=== PATIENT | male | born 1950 | race Hispanic/Latino ===

== ENCOUNTER 2016-08-04 08:44 | Day surgery (SDC) | payer BC, MEDICARE ==
[2016-08-04] MEDS ORDERED: DIPRIVAN 10 MG/ML IV ONE ×2 (08:50)
[2016-08-04] MEDS ORDERED: XYLOCAINE MPF 2% ONE (08:50)
[2016-08-04] MEDS ORDERED: ROBINUL ONE (09:00)
[2016-08-04] MEDS ORDERED: NACL 0.9% 1000 ML 1,000 ML IV SCH (10:00)
--- NOTE | 2016-08-04 10:03 | Anesthesia Consultation ---
Anesthesia Consult and Med Hx Date of service: 08/04/16 - Airway ROM Head & Neck: Inadequate Mental/Hyoid Distance: Adequate - Pulmonary Exam CTA: Yes - Cardiac Exam Cardiac Exam: RRR - Pre-Operative Health Status ASA Pre-Surgery Classification: ASA3 Proposed Anesthetic Plan: MAC - Cardiovascular System Hx Hypertension: Yes Hx Heart Attack/AMI: Yes (2001) Hx Angina: Yes - Central Nervous System CVA: Yes (Mar, 2015. No physical residuals, but some difficulty with communication.) Hx Back Pain: Yes - Additional Comments Anesthesia Medical History Comments: HTN. Stent 2001. IN 2001. STROKE 2015. GERD
--- NOTE | 2016-08-04 10:05 | Anesthesia Day of Surgery ---
Anesthesia Day of Surgery - Day of Surgery Patient Examined: Yes Patient H&P Reviewed: Yes Patient is NPO: Yes Beta Blockers: Yes
--- NOTE | 2016-08-04 10:47 | Short Stay Summary ---
Short Stay Documentation Date of service: 08/04/16 Narrative H&P: The patient presents for EGD and dilation for dysphagia and odynophagia - History Past Medical History: CAD, heart failure, hypertension, stroke Past Surgical History: appendectomy, cholecystectomy, Other (spinal surgery) Social history: no significant social history, no smoking, no alcohol abuse, no prescription drug abuse - Allergies and Medications Current Medications: Allergies valdecoxib [From Bextra] Allergy (Verified 11/24/15 11:35) Hives Sulfa (Sulfonamide Antibiotics) Adverse Reaction (Verified 10/17/14 12:02) Hives Home Medications Medication Instructions Recorded Confirmed Last Taken Type RX: Gabapentin [Neurontin] 800 mg PO Q8H 10/17/14 11/24/15 08/03/16 07:00 History RX: Morphine [Morphine TAB] 30 mg PO Q12H 10/17/14 11/24/15 08/04/16 07:00 History RX: Oxycodone HCl [Roxicodone TAB] 15 mg PO Q6H 10/17/14 11/24/15 08/04/16 07: 00 History RX: Zolpidem [Ambien] 5 mg PO QHS PRN 10/17/14 11/24/15 11/23/15 History RX: Aspirin [Aspirin BABY CHEW TAB] 81 mg PO QDAY #30 tab.chew 10/18/1411/24/15 Rx RX: Metoprolol [Lopressor TAB] 25 mg PO BID #60 tablet 10/18/14 11/24/15 20:00 Rx Atorvastatin Calcium [Lipitor] 20 mg PO QHS 11/24/15 11/24/15 11/23/15 History Active Medications Sodium Chloride (Nacl 0.9% 1000 Ml) 1,000 mls @ 50 mls/hr IV DIRECT BLANCO Last Admin: 08/04/16 10:04 Dose: 50 mls/hr - Physical exam General appearance: no acute distress, well-nourished Integumentary: no rash, no growths, no abnormal pigmentation HEENT: Atraumatic, PERRLA, EOMI, Mucous membr. moist/pink Lungs: Clear to auscultation, Normal air movement Breasts: deferred Heart: Regular rate, Normal S1, Normal S2, No murmurs Gastrointestinal: normoactive bowel sounds, tenderness, no distended, no masses , no guarding, no hepatomegaly, no splenomegaly Male Genitourinary: deferred Rectal Exam: deferred Extremities: no ischemia, pulses intact, pulses symmetrical, No edema, normal temperature, normal color, Full ROM Neurological: Normal gait, Normal speech, Strength at 5/5 X4 ext, Normal tone, Sensation intact, Cranial nerves 3-12 NL - Brief post op/procedure progress note Date of procedure: 08/04/16 Procedure: see dicatation Pathology: list (antral biopsies for h.pylori) Specimen disposition: to lab Condition: stable - Disposition Condition at discharge: Good Disposition: DC-01 TO HOME OR SELFCARE - Discharge Diagnoses (1) Dysphagia Status: Acute Qualifiers: Dysphagia type: D (2) Odynophagia Status: Acute Short Stay Discharge Plan Activity: other (no driving for 24 hours)
--- NOTE | 2016-08-04 10:52 | Operative Report ---
Operative Report Operative Report: Date of procedure: 08/04/2016 Procedure: Esophagogastroduodenoscopy with biopsies of the antrum for H. pylori. Esophageal dilation with 42, 46 and 50 Slovenian Foote dilator towards Preprocedure diagnosis: Odynophagia and dysphagia. Abdominal pain. History of peptic ulcer disease. Post procedure diagnosis: Gastritis. 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 Lipomatous appearing epiglottis Endoscopist: Dr. Nobles Anesthesia: Monitored anesthesia care per anesthesia department Medications: Propofol per anesthesia Estimated blood loss: 0 After careful discussion of the nature and purpose of the procedure as well as details the technique risks benefits and alternatives consent was obtained. The patient was placed in the left lateral decubitus position and medicated per anesthesia. The tip of the Vtrim EQ 570 video scope was passed per orum under direct vision into the esophagus and advanced into the stomach and descending duodenum. The epiglottis appeared lipomatous on initial inspection. There was no obvious narrowing in the cricopharyngeal area. The descending duodenum the duodenal bulb and pylorus were symmetrical and normal. The scope was withdrawn into the stomach and the stomach then gently insufflated with air. The antrum revealed diffuse erythema but no erosions or ulcers. Multiple biopsies are taken for H. pylori infection. The stomach was further insufflated and the scope was then retroflexed and partially withdrawn. The cardia, fundus, and body of the stomach were within normal limits and easily distensible.The scope was then withdrawn in the forward position. The esophagogastric junction was at 40 cm. The esophageal body was normal throughout with no obvious stricture, ring or tumor. Cricopharyngeal narrowing was suspected. Dilation was performed empirically. A Foote 42 Slovenian dilator was passed with mild resistance through the cricopharyngeal area. A 46 and subsequently 50 Slovenian dilator was passed also with mild resistance. The procedure was was well tolerated and the patient was observed in recovery. 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 Status post dilation to 50 cm. No evidence of esophagitis, tumor or stricture in the mid or distal esophagus. Dysmotility cannot be excluded by inspection. Lipomatous epiglottis. Plan: [Consideration of ENT evaluation. Redilate as needed. Consider CT of the neck and chest if symptoms are persistent. Consideration of motility study if symptoms fail to improve.] Electronically signed: Handy Nobles MD
[2016-08-04 11:17] VITALS: BP 119/74
--- NOTE | 2016-08-04 13:30 | Post Anesthesia Evaluation ---
- Post Anesthesia Evaluation Patient Participated: Yes Airway Patent: Yes Stable Respiratory Function: Yes Nausea/Vomiting: No Temp > 96.8F: Yes Pain Manageable: Yes Adequeate Hydration: Yes Anesthesia Complications: No
== END 2016-08-04 08:45 | disposition home or self-care (01) ==
LOC: GIO 08:44
PROVIDERS: ATTEND Internal Medicine Gastroenterology
DX: K29.50 Unspecified chronic gastritis without bleeding (principal); I25.2 Old myocardial infarction; K21.9 Gastro-esophageal reflux disease without esophagitis; M19.90 Unspecified osteoarthritis, unspecified site; I25.10 Atherosclerotic heart disease of native coronary artery without angina pectoris; I11.0 Hypertensive heart disease with heart failure; I50.9 Heart failure, unspecified; Z88.8 Allergy status to other drugs, medicaments and biological substances; Z88.2 Allergy status to sulfonamides; Z91.018 Allergy to other foods; Z86.73 Personal history of transient ischemic attack (TIA), and cerebral infarction without residual deficits; Z95.5 Presence of coronary angioplasty implant and graft; Z90.49 Acquired absence of other specified parts of digestive tract; Z98.890 Other specified postprocedural states; Z98.52 Vasectomy status; Z79.899 Other long term (current) drug therapy
CPT/HCPCS: 43239; 43450; 88305; 88342; J2704; J7030

== ENCOUNTER 2016-08-18 09:47 | Day surgery (SDC) | payer BC, MEDICARE ==
[2016-08-18] MEDS ORDERED: NACL 0.9% 1000 ML 1,000 ML IV SCH (10:00)
[2016-08-18] MEDS ORDERED: DIPRIVAN 10 MG/ML IV ONE ×3 (10:15→11:18)
[2016-08-18] MEDS ORDERED: WATER FOR IRRIG STERILE IR ONE (10:17)
[2016-08-18] MEDS ORDERED: XYLOCAINE MPF 2% ONE (10:30)
--- NOTE | 2016-08-18 11:13 | Anesthesia Day of Surgery ---
Anesthesia Day of Surgery - Day of Surgery Patient Examined: Yes Patient H&P Reviewed: Yes Patient is NPO: Yes Beta Blockers: Yes
--- NOTE | 2016-08-18 11:13 | Anesthesia Consultation ---
Anesthesia Consult and Med Hx Date of service: 08/18/16 - Airway Anesthetic Teeth Evaluation: Good ROM Head & Neck: Inadequate Mental/Hyoid Distance: Adequate Mallampati Class: Class III Intubation Access Assessment: Possibly Difficult - Pulmonary Exam CTA: Yes - Cardiac Exam Cardiac Exam: RRR - Pre-Operative Health Status ASA Pre-Surgery Classification: ASA3 Proposed Anesthetic Plan: MAC - Cardiovascular System Hx Hypertension: Yes Hx Coronary Artery Disease: Yes Hx Heart Attack/AMI: Yes (2001) Hx Angina: No Hx Percutaneous Transluminal Coronary Angioplasty (PTCA): Yes - Central Nervous System CVA: Yes (Mar, 2015. No physical residuals, but some difficulty with communication.) Hx Back Pain: Yes - Gastrointestinal Hx Ulcer: Yes
--- NOTE | 2016-08-18 11:21 | Short Stay Summary ---
Short Stay Documentation Date of service: 08/18/16 Narrative H&P: The patient presents for routine screening colonoscopy. Last study over 10 years ago - History Past Medical History: CAD, heart failure, stroke Past Surgical History: appendectomy, cholecystectomy, Other (complicated back surgery) Social history: no significant social history, , lives with family, no smoking, no alcohol abuse, no prescription drug abuse - Allergies and Medications Current Medications: Allergies valdecoxib [From Bextra] Allergy (Verified 11/24/15 11:35) Hives Sulfa (Sulfonamide Antibiotics) Adverse Reaction (Verified 10/17/14 12:02) Hives Home Medications Medication Instructions Recorded Confirmed Last Taken Type Gabapentin [Neurontin] 800 mg PO Q8H 10/17/14 11/24/15 08/18/16 06:00 History Morphine [Morphine TAB] 30 mg PO Q12H 10/17/14 11/24/15 08/18/16 06:00 History Oxycodone HCl [Roxicodone TAB] 15 mg PO Q6H 10/17/14 11/24/15 08/18/16 06:00 History Zolpidem [Ambien] 5 mg PO QHS PRN 10/17/14 11/24/15 08/17/16 22:00 History Aspirin [Aspirin BABY CHEW TAB] 81 mg PO QDAY #30 tab.chew 10/18/14 11/24/1501/23 06:00 Rx Metoprolol [Lopressor TAB] 25 mg PO BID #60 tablet 10/18/14 11/24/15 08/18/16 06 :00 Rx Atorvastatin Calcium [Lipitor] 20 mg PO QHS 11/24/15 11/24/15 08/18/16 06:00 History Active Medications Sodium Chloride (Nacl 0.9% 1000 Ml) 1,000 mls @ 50 mls/hr IV DIRECT BLANCO Last Admin: 08/18/16 10:30 Dose: 50 mls/hr - Physical exam General appearance: no acute distress, well-nourished, obese, disheveled Integumentary: no rash, no growths, no abnormal pigmentation HEENT: Atraumatic, PERRLA, EOMI, Mucous membr. moist/pink Lungs: Clear to auscultation, Normal air movement Breasts: deferred Heart: Regular rate, Normal S1, Normal S2, No murmurs, no Gallops Gastrointestinal: normoactive bowel sounds, no tenderness, no distended, no masses, no guarding Male Genitourinary: deferred Rectal Exam: normal exam-external/orifice, no mass Extremities: no ischemia, pulses intact, pulses symmetrical, No edema, normal temperature, normal color, Full ROM Neurological: Normal gait, Normal speech, Strength at 5/5 X4 ext, Normal tone, Sensation intact, Cranial nerves 3-12 NL - Brief post op/procedure progress note Date of procedure: 08/18/16 Findings: see dictation Estimated blood loss: none Pathology: list (hepatic flexure polyp) Specimen disposition: to lab Condition: stable - Disposition Condition at discharge: Good Disposition: DC-01 TO HOME OR SELFCARE - Discharge Diagnoses (1) Colon cancer screening Status: Acute Short Stay Discharge Plan Activity: other (no driving for 24 hours) Weight Bearing Status: Weight Bear as Tolerated Diet: regular Follow up with: FLOR ALTAMIRANO MD [Primary Care Provider] - 7 Days
--- NOTE | 2016-08-18 11:23 | Operative Report ---
Operative Report Operative Report: Date of procedure: 08/18/2016 Preprocedure diagnosis: Colon cancer screening, last studied over 10 years ago. Post procedure diagnosis: 7 millimeter sessile hepatic flexure polyp Procedure: Colonoscopy to the cecum with hot snare polypectomy Endoscopist: Dr. Nobles Anesthesia: Monitored anesthesia care per anesthesia department Estimated blood loss: 0 Medications: Monitored anesthesia care. See separate report by anesthesia for details. After careful discussion of the nature and purpose of the procedure as well as details of the technique risks benefits and alternatives the patient gave consent. Please see recent history and physical from the office. The patient was placed in the left lateral decubitus position and medicated per anesthesia. A rectal exam was performed sphincter tone was normal there were no masses palpable. The [employer] 570 scope was passed transanally and advanced under continuous direct vision without difficulty to the cecum. The colon was well prepared. The cecum was normal. The ascending colon was normal and on forward and retroflexed views. There was a 7 mm sessile polyp in the hepatic flexure. The polyp was removed completely with hot snare polypectomy technique. The polyp was retrieved by suction. The transverse colon, descending colon, and sigmoid colon were normal. The rectum was normal on forward and retroflexed views. The procedure was well-tolerated overall and the patient was observed in recovery. Conclusions: 7 mm hepatic flexure polyp, otherwise normal study. Plan: The patient will call the office in a few weeks to discuss the pathology report. Follow-up colonoscopy in 5 years if the polyp is adenomatous as suspected. Signed electronically: Handy Nobles M.D.
[2016-08-18 11:47] VITALS: BP 133/72
--- NOTE | 2016-08-18 12:00 | Post Anesthesia Evaluation ---
- Post Anesthesia Evaluation Patient Participated: Yes Airway Patent: Yes Stable Respiratory Function: Yes Temp > 96.8F: Yes Pain Manageable: Yes Adequeate Hydration: Yes Anesthesia Complications: No Block Receding Appropriately: Not Applicable
== END 2016-08-18 09:48 | disposition home or self-care (01) ==
LOC: GIO 09:47
PROVIDERS: ATTEND Internal Medicine Gastroenterology
DX: Z12.11 Encounter for screening for malignant neoplasm of colon (principal); D12.3 Benign neoplasm of transverse colon; I25.10 Atherosclerotic heart disease of native coronary artery without angina pectoris; I11.0 Hypertensive heart disease with heart failure; I50.9 Heart failure, unspecified; I25.2 Old myocardial infarction; K21.9 Gastro-esophageal reflux disease without esophagitis; M19.90 Unspecified osteoarthritis, unspecified site; Z86.73 Personal history of transient ischemic attack (TIA), and cerebral infarction without residual deficits; Z98.890 Other specified postprocedural states; Z90.49 Acquired absence of other specified parts of digestive tract; Z98.52 Vasectomy status; Z88.2 Allergy status to sulfonamides; Z88.8 Allergy status to other drugs, medicaments and biological substances; Z79.82 Long term (current) use of aspirin; Z79.899 Other long term (current) drug therapy; Z91.018 Allergy to other foods; Z87.19 Personal history of other diseases of the digestive system
CPT/HCPCS: 45385; 88305; J2704; J7030